=== PATIENT | female | born 1975 ===

== ENCOUNTER 2020-07-06 17:00 | Emergency (ER) | payer BC, OTHER ==
[2020-07-06] MEDS ORDERED: SODIUM CHLORIDE 0.9% 500 ML 500 ML IV STA (17:24)
--- NOTE | 2020-07-06 17:35 | ED ---
General Adult HPI - General Chief complaint: Arrhythmia/Palpitations Stated complaint: chest pain, SOB Time Seen by Provider: 07/06/20 17:24 Source: patient, RN notes reviewed, old records reviewed Mode of arrival: ambulatory Limitations: no limitations - History of Present Illness Initial comments: 45 year old female presenting for evaluation of palpitations, and dyspnea. Patient reports a cough and some associated chest tightness. Spinal ongoing for several days. Patient is a current smoker, states she states smokes a proximally 4 cigarettes daily. No history of asthma. She had COVID 19 in January of this year. She denies lower extremity pain or swelling. She states she had a low-grade fever or proximally 3 days ago. Cough is his worse in the morning and progresses to a dry cough throughout the day. No history of CAD, no history DVT or PE, she does have history of SVT. - Related Data Previous Rx's Medication Instructions Recorded Albuterol Inhaler [Ventolin Hfa 2 puff INHALATION QID PRN #1 inh 07/06/20 Inhaler] methylPREDNISolone Dose Pack 4 mg PO DIRECTED #21 package 07/06/20 [Medrol Dose Pack] Allergies Allergy/AdvReac Type Severity Reaction Status Date / Time No Known Allergies Allergy Verified 07/06/20 17:13 Review of Systems ROS Statement: Those systems with pertinent positive or pertinent negative responses have been documented in the HPI. ROS Other: All systems not noted in ROS Statement are negative. Past Medical History Past Medical History: No Reported History Additional Past Medical History / Comment(s): anemia, back pain History of Any Multi-Drug Resistant Organisms: None Reported Past Surgical History: No Surgical Hx Reported Past Psychological History: Anxiety Smoking Status: Current every day smoker Past Alcohol Use History: Rare Past Drug Use History: None Reported General Exam Limitations: no limitations General appearance: alert, in no apparent distress Head exam: Present: atraumatic, normocephalic Eye exam: Present: normal appearance, PERRL ENT exam: Present: normal exam Neck exam: Present: normal inspection. Absent: tenderness, meningismus Respiratory exam: Present: rhonchi (Scattered rhonchi). Absent: respiratory di stress, wheezes Cardiovascular Exam: Present: regular rate, normal rhythm GI/Abdominal exam: Present: soft. Absent: distended, tenderness, guarding Extremities exam: Present: normal inspection, normal capillary refill. Absent: pedal edema, calf tenderness Neurological exam: Present: alert, oriented X3, CN II-XII intact, motor sensory deficit Psychiatric exam: Present: normal affect, normal mood Skin exam: Present: warm, dry, intact. Absent: cyanosis, diaphoretic Course Vital Signs 07/06/20 07/06/20 17:08 18:13 Temperature 98.6 F Pulse Rate 94 82 Respiratory 18 20 Rate Blood Pressure 112/78 109/79 O2 Sat by Pulse 100 99 Oximetry EKG Findings - EKG Comments: EKG Findings:: EKG: Sinus rhythm with short TX, rate of 87, TX interval 106, QRS duration 84, QTC 433, no ST segment elevation. Medical Decision Making - Medical Decision Making 45-year-old female with cough, chest tightness, current smoker. Workup in the emergency department reveals EKG which is sinus rhythm ischemic changes. Chest x-ray negative for focal pneumonia. Patient has a normal CBC, has a normal electrolytes. D-dimer is negative. Her troponin is also negative. She has bro nchospastic cough with scattered rhonchi. Likely acute bronchitis. She will be started on albuterol and Medrol Dosepak. She will return with worsening or changing symptoms. She will follow with her primary care physician if she is interested in smoking cessation and she will follow with her primary care regarding her ongoing palpitations. - Lab Data Result diagrams: 07/06/20 17:38 07/06/20 17:37 Lab Results 07/06/20 07/06/20 07/06/20 Range/Units 17:37 17:37 17:37 WBC (3.8-10.6) k/uL RBC (3.80-5.40) m/uL Hgb (11.4-16.0) gm/dL Hct (34.0-46.0) % MCV (80.0-100.0) fL MCH (25.0-35.0) pg MCHC (31.0-37.0) g/dL RDW (11.5-15.5) % Plt Count (150-450) k/uL Neutrophils % % Lymphocytes % % Monocytes % % Eosinophils % % Basophils % % Neutrophils # (1.3-7.7) k/uL Lymphocytes # (1.0-4.8) k/uL Monocytes # (0-1.0) k/uL Eosinophils # (0-0.7) k/uL Basophils # (0-0.2) k/uL PT 9.8 (9.0-12.0) sec INR 0.9 (<1.2) APTT 24.7 (22.0-30.0) sec D-Dimer 0.31 (<0.60) mg/L FEU Sodium 140 (137-145) mmol/L Potassium 3.8 (3.5-5.1) mmol/L Chloride 107 (98-107) mmol/L Carbon Dioxide 25 (22-30) mmol/L Anion Gap 8 mmol/L BUN 10 (7-17) mg/dL Creatinine 0.60 (0.52-1.04) mg/dL Est GFR (CKD-EPI)AfAm >90 (>60 ml/min/1.73 sqM) Est GFR (CKD-EPI)NonAf >90 (>60 ml/min/1.73 sqM) Glucose 58 L (74-99) mg/dL Calcium 9.5 (8.4-10.2) mg/dL Magnesium 2.0 (1.6-2.3) mg/dL Total Bilirubin 0.3 (0.2-1.3) mg/dL AST 20 (14-36) U/L ALT 11 (4-34) U/L Alkaline Phosphatase 55 (38-126) U/L Troponin I <0.012 (0.000-0.034) ng/mL Total Protein 7.4 (6.3-8.2) g/dL Albumin 4.6 (3.5-5.0) g/dL 07/06/20 Range/Units 17:38 WBC 6.2 (3.8-10.6) k/uL RBC 4.79 (3.80-5.40) m/uL Hgb 13.3 (11.4-16.0) gm/dL Hct 40.9 (34.0-46.0) % MCV 85.4 (80.0-100.0) fL MCH 27.7 (25.0-35.0) pg MCHC 32.4 (31.0-37.0) g/dL RDW 13.2 (11.5-15.5) % Plt Count 337 (150-450) k/uL Neutrophils % 40 % Lymphocytes % 45 % Monocytes % 6 % Eosinophils % 7 % Basophils % 1 % Neutrophils # 2.5 (1.3-7.7) k/uL Lymphocytes # 2.8 (1.0-4.8) k/uL Monocytes # 0.4 (0-1.0) k/uL Eosinophils # 0.4 (0-0.7) k/uL Basophils # 0.1 (0-0.2) k/uL PT (9.0-12.0) sec INR (<1.2) APTT (22.0-30.0) sec D-Dimer (<0.60) mg/L FEU Sodium (137-145) mmol/L Potassium (3.5-5.1) mmol/L Chloride (98-107) mmol/L Carbon Dioxide (22-30) mmol/L Anion Gap mmol/L BUN (7-17) mg/dL Creatinine (0.52-1.04) mg/dL Est GFR (CKD-EPI)AfAm (>60 ml/min/1.73 sqM) Est GFR (CKD-EPI)NonAf (>60 ml/min/1.73 sqM) Glucose (74-99) mg/dL Calcium (8.4-10.2) mg/dL Magnesium (1.6-2.3) mg/dL Total Bilirubin (0.2-1.3) mg/dL AST (14-36) U/L ALT (4-34) U/L Alkaline Phosphatase (38-126) U/L Troponin I (0.000-0.034) ng/mL Total Protein (6.3-8.2) g/dL Albumin (3.5-5.0) g/dL Disposition Clinical Impression: Palpitations, Acute bronchitis Disposition: HOME SELF-CARE Condition: Good Instructions (If sedation given, give patient instructions): Heart Palpitations (ED), Acute Bronchitis (ED) Additional Instructions: Follow-up with the primary care physician. Prescriptions: methylPREDNISolone Dose Pack [Medrol Dose Pack] 4 mg PO DIRECTED #21 package Albuterol Inhaler [Ventolin Hfa Inhaler] 2 puff INHALATION QID PRN #1 inh PRN Reason: Cough Is patient prescribed a controlled substance at d/c from ED?: No Referrals: None,Stated [Primary Care Provider] - 1-2 days Time of Disposition: 18:48
[2020-07-06 17:50] LABS: Basophils # (A) 0.1 k/uL (0-0.2); Basophils % (A) 1 %; Eosinophils # (A) 0.4 k/uL (0-0.7); Eosinophils % (A) 7 %; HCT 40.9 % (34.0-46.0); HGB 13.3 gm/dL (11.4-16.0); Lymphocytes # (A) 2.8 k/uL (1.0-4.8); Lymphocytes % (A) 45 %; MCH 27.7 pg (25.0-35.0); MCHC 32.4 g/dL (31.0-37.0); MCV 85.4 fL (80.0-100.0); Mean Platelet Volume 6.6; Monocytes # (A) 0.4 k/uL (0-1.0); Monocytes % (A) 6 %; Neutrophils # (A) 2.5 k/uL (1.3-7.7); Neutrophils % (A) 40 %; Platelet Count 337 k/uL (150-450); RBC 4.79 m/uL (3.80-5.40); RDW 13.2 % (11.5-15.5); WBC 6.2 k/uL (3.8-10.6)
[2020-07-06 18:01] LABS: AST 20 U/L (14-36); African American GFR (CKD) >90 (>60 ml/min/1.73 sqM); Albumin 4.6 g/dL (3.5-5.0); Anion Gap 8 mmol/L; Blood Urea Nitrogen 10 mg/dL (7-17); Calcium 9.5 mg/dL (8.4-10.2); Carbon Dioxide 25 mmol/L (22-30); Chloride 107 mmol/L (98-107); Glucose 58 mg/dL (74-99); Non-African American GFR(CKD) >90 (>60 ml/min/1.73 sqM); Potassium 3.8 mmol/L (3.5-5.1); Sodium 140 mmol/L (137-145); Total Bilirubin 0.3 mg/dL (0.2-1.3); Total Protein 7.4 g/dL (6.3-8.2)
[2020-07-06 18:02] LABS: ALT 11 U/L (4-34); Alkaline Phosphatase 55 U/L (38-126)
[2020-07-06 18:05] LABS: D-Dimer 0.31 mg/L FEU (<0.60); INR 0.9 (<1.2); Partial Thromboplastin Time 24.7 sec (22.0-30.0); Prothrombin Time 9.8 sec (9.0-12.0)
--- NOTE | 2020-07-06 18:08 | XR ---
EXAMINATION TYPE: XR chest 2V DATE OF EXAM: 07/06/2020 COMPARISON: NONE HISTORY: Chest pain TECHNIQUE: FINDINGS: Heart and mediastinum are normal. Lungs are clear. Diaphragm is normal. Bony thorax appears normal. There are chest leads. IMPRESSION: Normal chest.
[2020-07-06] MEDS ORDERED: PIPERACILLIN-TAZOBACTAM 3.375 GM in SODIUM CHLORIDE 0.9% 100 ML IVPB STA (18:34)
[2020-07-06 19:03] LABS: Glucose,Whole Blood 128 mg/dL (75-99)
[2020-07-06 19:17] VITALS: BP 113/76; PULSE 98; RESP 18; TEMP 97.9
[2020-07-07] MEDS ORDERED: PIPERACILLIN-TAZOBACTAM 3.375 GM in SODIUM CHLORIDE 0.9% 100 ML IVPB SCH ×2
== END 2020-07-06 19:00 | disposition home or self-care (01) ==
LOC: EC 17:00
DX: J20.9 Acute bronchitis, unspecified (principal); R00.2 Palpitations; F17.200 Nicotine dependence, unspecified, uncomplicated; Z20.828 Contact with and (suspected) exposure to other viral communicable diseases
CPT/HCPCS: 36415; 71046; 80053; 83735; 84484; 85025; 85379; 85610; 85730; 93005; 99285

== ENCOUNTER → 2020-07-21 | Outpatient (CLI) | payer OTHER ==
--- NOTE | 2020-07-21 14:16 | EST ---
EXERCISE STRESS DATE OF SERVICE: 07/21/2020 AGE: 45 SEX: Fe HT: 64" WT: 130 lbs PROTOCOL: ETT STAGE: 3 DURATION OF EXERCISE: 8 minutes, 30 seconds HEART RATE REST: 88 BLOOD PRESSURE REST: 96/68 MAXIMUM HEART RATE ACHIEVED: 152 MAXIMUM BLOOD PRESSURE: 161/107 85% MPHR: 150 100% MPHR: 176 METS: 10.3 INDICATIONS: Chest pain. REFERRING DOCTOR: Dr. Smith. STRESS DATA: Heart rate 88, pressure is 96/68 mmHg. Baseline EKG showed sinus mechanism. The patient exercised on the treadmill according to [facility] protocol for a total of 8 minutes and 30 seconds and achieved 10.3 METS. Max heart rate was 152 which is about 86% of maximum predicted heart rate. Maximum blood pressure was 161/107 mmHg. Clinically the patient had dizziness but no chest pain or chest discomfort. The EKG did not show any significant ST or T-wave abnormalities concerning for ischemia. CONCLUSION: 1. Excellent exercise tolerance. 2. Normal EKG in response to exercise. MMODL / IJN: [id number] /
--- NOTE | 2020-07-22 17:52 | ECHOF ---
Referral Reason:I49.9 Cardiac arrhythmia; chest pain R07.89 MEASUREMENTS -------- HEIGHT: 162.6 cm WEIGHT: 59.0 kg BP: RVIDd: 2.3 cm (< 3.3) IVSd: 0.9 cm (0.6 - 1.1) LVIDd: 4.3 cm (3.9 - 5.3) LVPWd: 0.8 cm (0.6 - 1.1) EDV(Teich): 83 ml IVSs: 1.2 cm LVIDs: 2.7 cm LVPWs: 1.4 cm %IVS Thck: 35 % ESV(Teich): 28 ml EF(Teich): 66 % %FS: 36 % SV(Teich): 55 ml LA Diam: 2.7 cm (2.7 - 3.8) LVLd A4C: 7.2 cm LVEDV MOD A4C: 68 ml LVLs A4C: 5.9 cm LVESV MOD A4C: 35 ml LVEF MOD A4C: 49 % SV MOD A4C: 33 ml LVLd A2C: 5.4 cm LVEDV MOD A2C: 51 ml LVLs A2C: 5.8 cm LVESV MOD A2C: 30 ml LVEF MOD A2C: 41 % SV MOD A2C: 21 ml EF Biplane: 52 % LVEDV MOD BP: 67 ml LVESV MOD BP: 33 ml LALs A4C: 4.5 cm LAAs A4C: 11.7 cm LAESV A-L A4C: 26 ml LAESV MOD A4C: 23 ml LALs A2C: 4.4 cm LAAs A2C: 11.0 cm LAESV A-L A2C: 24 ml LAESV MOD A2C: 22 ml LAESV(A-L): 25 ml LAESV Index (A-L): 15.32 ml/m HR_2Ch_Q: 82 bpm HR_4Ch_Q: 78 bpm LVVED_2Ch_Q: 58 ml LVVED_4Ch_Q: 49 ml LVVED_BiP_Q: 53 ml LVVES_2Ch_Q: 25 ml LVVES_4Ch_Q: 20 ml LVVES_BiP_Q: 23 ml LVEF_2Ch_Q: 57 % LVEF_4Ch_Q: 58 % LVEF_BiP_Q: 57 % LVSV_2Ch_Q: 33 ml LVSV_4Ch_Q: 28 ml LVSV_BiP_Q: 31 ml LVCO_2Ch_Q: 2.7 l/min LVCO_4Ch_Q: 2.2 l/min LVCO_BiP_Q: 2.5 l/min LVLs_2Ch_Q: 5.7 cm LVLs_4Ch_Q: 6.1 cm LVLd_2Ch_Q: 6.9 cm LVLd_4Ch_Q: 6.9 cm Ao Diam: 2.5 cm (2.0 - 3.7) AV Cusp: 1.6 cm (1.5 - 2.6) MV EXCURSION: 18.438 mm (> 18.000) MV EF SLOPE: 135 mm/s (70 - 150) EPSS: 0.5 cm MV E Paul: 0.74 m/s MV DecT: 167 ms MV Dec Willacy: 4.4 m/s MV A Paul: 0.49 m/s MV E/A Ratio: 1.52 MV PHT: 49 ms AV Vmax: 1.13 m/s AV maxP.09 mmHg TR Vmax: 1.91 m/s TR maxP.52 mmHg RAP: 5.00 mmHg RVSP: 19.52 mmHg FINDINGS -------- Sinus rhythm. This was a technically good study. The left ventricular size is normal. Left ventricular wall thickness is normal. Overall left vent ricular systolic function is low-normal with, an EF between 50 - 55 %. The right ventricle is normal in size. Normal LA size by volume 22+/-6 ml/m2. The right atrium is normal in size. Interatrial and interventricular septum intact. The aortic valve is trileaflet and appears structurally normal. The mitral valve is normal. Mild tricuspid regurgitation present. Right ventricular systolic pressure is normal at < 35 mmHg. There is no pulmonic regurgitation present. The aortic root size is normal. Normal inferior vena cava with normal inspiratory collapse consistent with estimated right atrial pre ssure of 5 mmHg. There is no pericardial effusion. CONCLUSIONS -------- 1. The left ventricular size is normal. 2. Left ventricular wall thickness is normal. 3. Overall left ventricular systolic function is low-normal with, an EF between 50 - 55 %. 4. The aortic valve is trileaflet and appears structurally normal. 5. Mild tricuspid regurgitation present. 6. There is no pericardial effusion. SET ILLUSTRATOR: Francisca Heller RDCS
--- NOTE | 2020-07-25 19:51 | HM ---
HOLTER MONITOR REPORT This patient was monitored for 24 hours. Baseline rhythm is sinus mechanism with normal conduction, the average rate 88 beats per minute, minimum 55, maximum 140 beats per minute. Ventricular ectopic activity is present in the form of rare single PVCs. Supraventricular ectopic activity was present in the form of rare single PACs. Symptoms of heart pounding, palpitation and chest pressure did not correlate with any dysrhythmia. CONCLUSION: 1. Sinus mechanism baseline rhythm. 2. Rare ventricular ectopic activity. 3. Rare supraventricular ectopic activity. 4. Symptoms did not correlate with any dysrhythmia. MMODL / IJN: [id number] /
== END | disposition home or self-care (01) ==
LOC: RADNMMAIN 10:23
PROVIDERS: ATTEND Family Medicine
DX: I07.1 Rheumatic tricuspid insufficiency (principal)
CPT/HCPCS: 93017; 93225; 93226; 93306

== ENCOUNTER 2021-01-03 14:42 | Emergency (ER) | payer OTHER ==
[2021-01-03 14:48] VITALS: TEMP 98.6
[2021-01-03] MEDS ORDERED: SODIUM CHLORIDE 0.9% 500 ML 500 ML IV STA (15:18)
--- NOTE | 2021-01-03 15:22 | ED ---
General Adult HPI - General Chief complaint: Arrhythmia/Palpitations Stated complaint: Irregular heartbeat Time Seen by Provider: 01/03/21 14:45 Source: patient, RN notes reviewed, old records reviewed Mode of arrival: ambulatory Limitations: no limitations - History of Present Illness Initial comments: This is a 45-year-old female presents to the emergency department complaining that she's been having palpitations and chest. Patient states last night she was so nervous about it she was afraid to go to sleep. Patient states she has been seen by trimmer sawyer and wore a Holter monitor for 30 days but has not followed up with the results. Patient states for the last few days she has had upper respiratory symptoms little bit of a cough no shortness of breath and no chest pain. Patient states she did have a fever for a couple days but she's had no fever today. Patient denies abdominal pain patient denies nausea vomiting diarrhea. - Related Data Home Medications Medication Instructions Recorded Confirmed HYDROcodone/APAP 7.5-325MG [[place] 1 tab PO Q8H PRN 01/03/21 01/03/21 7.5-325] Ibuprofen [Motrin] 600 mg PO Q6H PRN 01/03/21 01/03/21 Melatonin 2.5 mg PO HS PRN 01/03/21 01/03/21 Multivitamins, Thera [Multivitamin 1 tab PO DAILY 01/03/21 01/03/21 (formulary)] diazePAM [Valium] 2 mg PO Q8H PRN 01/03/21 01/03/21 predniSONE 5 - 20 mg PO DAILY PRN 01/03/21 01/03/21 Previous Rx's Medication Instructions Recorded Metoprolol Succinate (ER) [Toprol 25 mg PO DAILY #20 tab 01/03/21 Xl] Allergies Allergy/AdvReac Type Severity Reaction Status Date / Time No Known Allergies Allergy Verified 01/03/21 16:22 Review of Systems ROS Statement: Those systems with pertinent positive or pertinent negative responses have been documented in the HPI. ROS Other: All systems not noted in ROS Statement are negative. Past Medical History Past Medical History: No Reported History Additional Past Medical History / Comment(s): anemia, back pain History of Any Multi-Drug Resistant Organisms: None Reported Past Surgical History: No Surgical Hx Reported Past Psychological History: Anxiety Smoking Status: Current some day smoker Past Alcohol Use History: Rare Past Drug Use History: None Reported General Exam - General Exam Comments Initial Comments: GENERAL: Patient is well-developed and well-nourished. Patient is nontoxic and well- hydrated and is in mild distress. ENT: Neck is soft and supple. No significant lymphadenopathy is noted. Oropharynx is clear. Moist mucous membranes. Neck has full range of motion without eliciting any pain. EYES: The sclera were anicteric and conjunctiva were pink and moist. Extraocular movements were intact and pupils were equal round and reactive to light. Eyelids were unremarkable. PULMONARY: Unlabored respirations. Good breath sounds bilaterally. No audible rales rhonchi or wheezing was noted. CARDIOVASCULAR: There is a regular rate and rhythm without any murmurs gallops or rubs. ABDOMEN: Soft and nontender with normal bowel sounds. SKIN: Skin is clear with no lesions or rashes and otherwise unremarkable. NEUROLOGIC: Patient is alert and oriented x3. Cranial nerves II through XII are grossly intact. Motor and sensory are also intact. Normal speech, volume and content. Symmetrical smile. MUSCULOSKELETAL: Normal extremities with adequate strength and full range of motion. No lower extremity swelling or edema. No calf tenderness. LYMPHATICS: No significant lymphadenopathy is noted PSYCHIATRIC: Normal psychiatric evaluation. Limitations: no limitations Course Vital Signs 01/03/21 01/03/21 01/03/21 14:45 15:00 16:01 Temperature 98.6 F Pulse Rate 99 67 Pulse Rate [ 105 H [place] ] Respiratory 20 16 Rate Blood Pressure 123/87 97/65 O2 Sat by Pulse 100 100 Oximetry Medical Decision Making - Medical Decision Making EKG shows sinus rhythm at 98 bpm AR interval is 104 QRS 92 QT interval 368 QTC is 469. Patient's EKG shows no ST segment elevation or depression. I spoke with Dr. trevino about the patient he was aware of the patient. Dr. Girard on the patient started Toprol-XL 25 mg by mouth daily[address] Dr[address] Girard also wanted to see the patient this week. Patient had no episodes while in the emergency department. - Lab Data Result diagrams: 01/03/21 15:33 01/03/21 15:33 Lab Results 01/03/21 01/03/21 01/03/21 Range/Units 15:33 15:33 15:33 WBC 4.6 (3.8-10.6) k/uL RBC 4.28 (3.80-5.40) m/uL Hgb 12.6 (11.4-16.0) gm/dL Hct 36.0 (34.0-46.0) % MCV 84.1 (80.0-100.0) fL MCH 29.5 (25.0-35.0) pg MCHC 35.1 (31.0-37.0) g/dL RDW 12.4 (11.5-15.5) % Plt Count 265 (150-450) k/uL MPV 6.3 Neutrophils % 43 % Lymphocytes % 46 % Monocytes % 6 % Eosinophils % 2 % Basophils % 1 % Neutrophils # 2.0 (1.3-7.7) k/uL Lymphocytes # 2.1 (1.0-4.8) k/uL Monocytes # 0.3 (0-1.0) k/uL Eosinophils # 0.1 (0-0.7) k/uL Basophils # 0.0 (0-0.2) k/uL PT 10.5 (9.0-12.0) sec INR 1.0 (<1.2) APTT 25.0 (22.0-30.0) sec D-Dimer 0.18 (<0.60) mg/L FEU Sodium (137-145) mmol/L Potassium (3.5-5.1) mmol/L Chloride (98-107) mmol/L Carbon Dioxide (22-30) mmol/L Anion Gap mmol/L BUN (7-17) mg/dL Creatinine (0.52-1.04) mg/dL Est GFR (CKD-EPI)AfAm (>60 ml/min/1.73 sqM) Est GFR (CKD-EPI)NonAf (>60 ml/min/1.73 sqM) Glucose (74-99) mg/dL Calcium (8.4-10.2) mg/dL Magnesium (1.6-2.3) mg/dL Total Bilirubin (0.2-1.3) mg/dL AST (14-36) U/L ALT (4-34) U/L Alkaline Phosphatase (38-126) U/L Troponin I (0.000-0.034) ng/mL Total Protein (6.3-8.2) g/dL Albumin (3.5-5.0) g/dL TSH (0.465-4.680) mIU/L Urine Opiates Screen Not Detected (NotDetected) Ur Oxycodone Screen Not Detected (NotDetected) Urine Methadone Screen Not Detected (NotDetected) Ur Propoxyphene Screen Not Detected (NotDetected) Ur Barbiturates Screen Not Detected (NotDetected) U Tricyclic Antidepress Not Detected (NotDetected) Ur Phencyclidine Scrn Not Detected (NotDetected) Ur Amphetamines Screen Not Detected (NotDetected) U Methamphetamines Scrn Not Detected (NotDetected) U Benzodiazepines Scrn Detected H (NotDetected) Urine Cocaine Screen Not Detected (NotDetected) U Marijuana (THC) Screen Not Detected (NotDetected) 01/03/21 01/03/21 Range/Units 15:33 15:33 WBC (3.8-10.6) k/uL RBC (3.80-5.40) m/uL Hgb (11.4-16.0) gm/dL Hct (34.0-46.0) % MCV (80.0-100.0) fL MCH (25.0-35.0) pg MCHC (31.0-37.0) g/dL RDW (11.5-15.5) % Plt Count (150-450) k/uL MPV Neutrophils % % Lymphocytes % % Monocytes % % Eosinophils % % Basophils % % Neutrophils # (1.3-7.7) k/uL Lymphocytes # (1.0-4.8) k/uL Monocytes # (0-1.0) k/uL Eosinophils # (0-0.7) k/uL Basophils # (0-0.2) k/uL PT (9.0-12.0) sec INR (<1.2) APTT (22.0-30.0) sec D-Dimer (<0.60) mg/L FEU Sodium 139 (137-145) mmol/L Potassium 3.6 (3.5-5.1) mmol/L Chloride 107 (98-107) mmol/L Carbon Dioxide 26 (22-30) mmol/L Anion Gap 6 mmol/L BUN 10 (7-17) mg/dL Creatinine 0.61 (0.52-1.04) mg/dL Est GFR (CKD-EPI)AfAm >90 (>60 ml/min/1.73 sqM) Est GFR (CKD-EPI)NonAf >90 (>60 ml/min/1.73 sqM) Glucose 83 (74-99) mg/dL Calcium 9.3 (8.4-10.2) mg/dL Magnesium 1.8 (1.6-2.3) mg/dL Total Bilirubin 0.4 (0.2-1.3) mg/dL AST 19 (14-36) U/L ALT 9 (4-34) U/L Alkaline Phosphatase 46 (38-126) U/L Troponin I <0.012 (0.000-0.034) ng/mL Total Protein 6.6 (6.3-8.2) g/dL Albumin 4.0 (3.5-5.0) g/dL TSH 0.960 (0.465-4.680) mIU/L Urine Opiates Screen (NotDetected) Ur Oxycodone Screen (NotDetected) Urine Methadone Screen (NotDetected) Ur Propoxyphene Screen (NotDetected) Ur Barbiturates Screen (NotDetected) U Tricyclic Antidepress (NotDetected) Ur Phencyclidine Scrn (NotDetected) Ur Amphetamines Screen (NotDetected) U Methamphetamines Scrn (NotDetected) U Benzodiazepines Scrn (NotDetected) Urine Cocaine Screen (NotDetected) U Marijuana (THC) Screen (NotDetected) Disposition Clinical Impression: Atrial tachycardia Disposition: HOME SELF-CARE Condition: Good Instructions (If sedation given, give patient instructions): Heart Palpitations (ED) Prescriptions: Metoprolol Succinate (ER) [Toprol Xl] 25 mg PO DAILY #20 tab Is patient prescribed a controlled substance at d/c from ED?: No Referrals: Aisha Romo MD [Primary Care Provider] - 1-2 days Time of Disposition: 16:46
[2021-01-03 15:45] LABS: Basophils % (A) 1 %; Eosinophils # (A) 0.1 k/uL (0-0.7); Eosinophils % (A) 2 %; HGB 12.6 gm/dL (11.4-16.0); Lymphocytes # (A) 2.1 k/uL (1.0-4.8); Lymphocytes % (A) 46 %; MCH 29.5 pg (25.0-35.0); MCHC 35.1 g/dL (31.0-37.0); MCV 84.1 fL (80.0-100.0); Mean Platelet Volume 6.3; Monocytes # (A) 0.3 k/uL (0-1.0); Monocytes % (A) 6 %; Neutrophils % (A) 43 %; Platelet Count 265 k/uL (150-450); RBC 4.28 m/uL (3.80-5.40); RDW 12.4 % (11.5-15.5); WBC 4.6 k/uL (3.8-10.6)
[2021-01-03 15:58] LABS: ALT 9 U/L (4-34); AST 19 U/L (14-36); African American GFR (CKD) >90 (>60 ml/min/1.73 sqM); Alkaline Phosphatase 46 U/L (38-126); Anion Gap 6 mmol/L; Blood Urea Nitrogen 10 mg/dL (7-17); Calcium 9.3 mg/dL (8.4-10.2); Carbon Dioxide 26 mmol/L (22-30); Chloride 107 mmol/L (98-107); Glucose 83 mg/dL (74-99); Magnesium 1.8 mg/dL (1.6-2.3); Non-African American GFR(CKD) >90 (>60 ml/min/1.73 sqM); Potassium 3.6 mmol/L (3.5-5.1); Sodium 139 mmol/L (137-145); Total Bilirubin 0.4 mg/dL (0.2-1.3); Total Protein 6.6 g/dL (6.3-8.2)
[2021-01-03 16:02] VITALS: RESP 16
[2021-01-03 16:04] LABS: D-Dimer 0.18 mg/L FEU (<0.60); Prothrombin Time 10.5 sec (9.0-12.0)
--- NOTE | 2021-01-03 16:12 | XR ---
EXAMINATION TYPE: XR chest 2V DATE OF EXAM: 01/03/2021 COMPARISON: 07/06/2020 INDICATION: Dysrhythmia cough fever TECHNIQUE: Frontal and lateral views of the chest are obtained. FINDINGS: The heart size is normal. The pulmonary vasculature is normal. The lungs are clear. Some mild scoliosis with the convexity to left in the upper thoracic spine. IMPRESSION: 1. No acute pulmonary process.
[2021-01-03 16:15] LABS: Amphetamine Screen,Urine Not Detected (NotDetected); Barbiturate Screen,Urine Not Detected (NotDetected); Benzodiazepines Screen,Urine Detected (NotDetected); Cocaine Screen,Urine Not Detected (NotDetected); Methadone Screen, Urine Not Detected (NotDetected); Opiate Screen,Urine Not Detected (NotDetected); Oxycodone Screen, Urine Not Detected (NotDetected); Phencyclidine Screen,Urine Not Detected (NotDetected); Tricyclic Antidepressant,Urine Not Detected (NotDetected); Urn Cannabinoid Scrn Not Detected (NotDetected)
[2021-01-03 16:59] VITALS: BP 102/73; PULSE 71
== END 2021-01-03 16:59 | disposition home or self-care (01) ==
LOC: EC 14:42
DX: R00.0 Tachycardia, unspecified (principal); F41.9 Anxiety disorder, unspecified; F17.200 Nicotine dependence, unspecified, uncomplicated
CPT/HCPCS: 36415; 71046; 80053; 80306; 83735; 84443; 84484; 85025; 85379; 85610; 85730; 87635; 93005; 99285

== ENCOUNTER → 2021-02-16 | Day surgery (SDC) | payer OTHER ==
[2021-02-14 13:59] VITALS: BMI 23.1
[~2021-02-16] MED LIST: SODIUM CHLORIDE 0.9% 1,000 ML IV SCH; SODIUM CHLORIDE 0.9% 500 ML 500 ML IV ONE
[2021-02-16 09:02] VITALS: BP 101/64; PULSE 76; RESP 18; TEMP 97.2
--- NOTE | 2021-02-16 13:57 | P.EPPROC ---
- EP Procedure Note Electrophysiology Procedure Note: Diagnosis Recurrent syncope and presyncope Twelve-lead EKG shows sinus rhythm with a short LA interval of 86 ms no delta waves noted normal ST segments normal QT interval Tilt table test per protocol Baseline blood pressure 99/56 mmHg, Baseline heart rate 64 beats a minute Patient was tilted upright and I'll of 70 per protocol. No significant change in blood pressure. Minimal increase in heart rate to the mid 80s Patient complained of nausea, felt her heart was beating faster and occasionally felt that the room was spinning. Blood pressure was 101/67 mmHg at that time heart rate was in the 80s She was laid supine at the end of the procedure. Impression Short LA interval and twelve-lead EKG without evidence for delta waves Low normal blood pressure without any evidence for syncope, neurocardiogenic syncope or dysautonomia
== END ==
LOC: CATHEP 08:43
PROVIDERS: ATTEND Internal Medicine Clinical Cardiac Electrophysiology
DX: R55 Syncope and collapse (principal); R00.2 Palpitations; R42 Dizziness and giddiness; I47.1 Supraventricular tachycardia; R61 Generalized hyperhidrosis; R09.89 Other specified symptoms and signs involving the circulatory and respiratory systems; Z86.16 Personal history of COVID-19; Z72.0 Tobacco use; Z79.899 Other long term (current) drug therapy
CPT/HCPCS: 81025; 93660

== ENCOUNTER 2021-11-20 17:11 | Emergency (ER) | payer OTHER ==
--- NOTE | 2021-11-20 19:08 | ED ---
General Adult HPI - General Stated complaint: fever, cough, SOB - History of Present Illness Initial comments: Leeanna is a 46yo F with PMH of chronic bronchitis who presents to the ER today via private vehicle for evaluation of cough, sore throat, nausea, myalgias, fever and chills for 3 days. Patient reports that she had COVID-19 in January 2020 and since that time has suffered from chronic bronchitis and shortness of breath. She is scheduled to follow-up with a import/export agent in the near future. Patient has concern for recent re-exposure to COVID-19. Patient received COVID vaccine in July and August. - Related Data Home Medications Medication Instructions Recorded Confirmed HYDROcodone/APAP 7.5-325MG [Barre 1 tab PO Q8H PRN 01/03/21 02/16/21 7.5-325] Ibuprofen [Motrin] 600 mg PO Q6H PRN 01/03/21 02/16/21 Multivitamins, Thera [Multivitamin 1 tab PO DAILY 01/03/21 02/16/21 (formulary)] diazePAM [Valium] 2 mg PO Q8H PRN 01/03/21 02/16/21 predniSONE 5 - 20 mg PO DAILY PRN 01/03/21 02/16/21 Nadolol [Corgard] 20 mg PO HS 02/14/21 02/16/21 Previous Rx's Medication Instructions Recorded Azithromycin [Zithromax Z-pack (6 0 mg PO DIRECTED 5 Days #6 tab 11/20/21 tabs)] Allergies Allergy/AdvReac Type Severity Reaction Status Date / Time No Known Allergies Allergy Verified 11/20/21 19:05 Review of Systems ROS Statement: Those systems with pertinent positive or pertinent negative responses have been documented in the HPI. ROS Other: All systems not noted in ROS Statement are negative. Past Medical History Past Medical History: No Reported History Additional Past Medical History / Comment(s): See Dr Zamora's H&P, hx back pain History of Any Multi-Drug Resistant Organisms: None Reported Past Surgical History: No Surgical Hx Reported Additional Past Surgical History / Comment(s): hx of labial cyst removed Past Anesthesia/Blood Transfusion Reactions: No Reported Reaction Smoking Status: Former smoker General Exam - General Exam Comments Initial Comments: Physical Exam GENERAL: Patient is well-developed and well-nourished. Patient is nontoxic and well-hydrated and is in no distress. HENT: Normocephalic, Atraumatic. EYES: PERRL, EOMI PULMONARY: Unlabored respirations. CARDIOVASCULAR: RRR Warm and well perfused extremities ABDOMEN: Non-distended SKIN: No rashes or bruising : Deferred NEUROLOGIC: Alert and oriented Normal speech Normal gait MUSCULOSKELETAL: Moving all extremities with no apparent injury PSYCHIATRIC: No SI/HI Course Vital Signs 11/20/21 11/20/21 19:05 22:11 Temperature 98.9 F Pulse Rate 104 H 103 H Respiratory 20 25 H Rate Blood Pressure 115/82 118/76 O2 Sat by Pulse 99 95 Oximetry Medical Decision Making - Medical Decision Making Patient presenting with URI symptoms, she reports she has frequent bronchitis that needs treatment. Patient states that she is vaccinated for COVID-19. She was offered COVID as well as influenza was negative for both. Chest x-ray was clear of any consolidated processes. Patient be treated with azithromycin and discharged home in stable condition. - Lab Data Lab Results 11/20/21 11/20/21 Range/Units 19:11 19:11 Coronavirus (PCR) Not Detected (Not Detectd) Influenza Type A RNA Not Detected (Not Detectd) Influenza Type B (PCR) Not Detected (Not Detectd) Disposition Clinical Impression: Viral URI with cough Disposition: HOME SELF-CARE Condition: Stable Additional Instructions: Negative for COVID, Influenza A & B, Chest X-ray normal You likely have a viral upper respiratory infection, we will treat you with azithromycin as it does have antiinflammatory properties in the lungs and treats bronchitis/early pneumonia Return to the ER for any worsening or development of new or concerning symptoms Prescriptions: Azithromycin [Zithromax Z-pack (6 tabs)] 0 mg PO DIRECTED 5 Days #6 tab Is patient prescribed a controlled substance at d/c from ED?: No Referrals: Aisha Romo MD [Primary Care Provider] - 1-2 days
[2021-11-20 19:09] VITALS: TEMP 98.9
--- NOTE | 2021-11-20 19:45 | XR ---
EXAMINATION TYPE: XR chest 2V DATE OF EXAM: 11/20/2021 COMPARISON: 01/03/2021 HISTORY: Cough TECHNIQUE: 2 view FINDINGS: Heart and mediastinum are normal. Lungs are clear. Diaphragm is normal. Bony thorax is inta ct. IMPRESSION: Normal chest. No change.
[2021-11-20] MEDS ORDERED: AZITHROMYCIN 500 MG TAB PO STA (21:46)
[2021-11-20 22:12] VITALS: BP 118/76; PULSE 103; RESP 25
== END 2021-11-20 22:19 | disposition home or self-care (01) ==
LOC: EC 17:11
DX: J06.9 Acute upper respiratory infection, unspecified (principal); Z20.822 Contact with and (suspected) exposure to COVID-19; Z87.891 Personal history of nicotine dependence
CPT/HCPCS: 71046; 87502; 87635; 99285

== ENCOUNTER → 2022-12-14 | Outpatient (CLI) | payer OTHER ==
--- NOTE | 2022-12-15 05:53 | MR ---
EXAMINATION TYPE: MR knee LT wo con DATE OF EXAM: 12/14/2022 COMPARISON: None HISTORY: Left knee pain x 1 year. Multiplanar multi echo imaging of the left knee performed without contrast. The anterior and posterior cruciate ligaments are intact. There is small knee joint effusion. The col lateral ligaments are intact. The patella is intact. The medial and lateral menisci appear intact. No evidence of a fracture. No fo amanda bone destruction. There is minimal subchondral edema in the lateral femoral condyle. IMPRESSION: Small area of subchondral edema in the lateral femoral condyle consistent with bone bruise or degener ative cyst formation. No evidence of meniscal tear. No ligamentous tear. Mild knee joint effusion.
== END | disposition home or self-care (01) ==
LOC: RADMRIMAIN 10:32
PROVIDERS: ATTEND Orthopaedic Surgery
DX: M25.462 Effusion, left knee (principal); M25.562 Pain in left knee; R60.0 Localized edema